=== PATIENT | female | born 1980 | race Caucasian/White ===

== ENCOUNTER 2017-12-05 07:52 | Emergency (ER) | payer OTHER ==
[2017-12-05 07:54] VITALS: BMI 26.6
[2017-12-05 07:57] VITALS: BP 126/92; PULSE 79; RESP 16; TEMP 97.8; O2SAT 98
--- NOTE | 2017-12-05 09:11 | ED PDOC ---
HPI: General Adult Time Seen by Provider: 12/05/17 08:43 Chief Complaint (Nursing): ENT Problem Chief Complaint (Provider): ENT Problem History Per: Patient History/Exam Limitations: no limitations Onset/Duration Of Symptoms: Hrs (x1) Current Symptoms Are (Timing): Still Present Additional Complaint(s): 37 year old female who presents to the emergency department with a complaint of foreign body in right ear ongoing since this morning. Denied any ear pain, discharge or further medical complaints. PMD: Corrine Hidalgo MD Past Medical History Reviewed: Historical Data, Nursing Documentation, Vital Signs Vital Signs: Last Vital Signs Temp 97.8 F 12/05/17 07:54 Pulse 79 12/05/17 07:54 Resp 16 12/05/17 07:54 BP 126/92 H 12/05/17 07:54 Pulse Ox 98 12/05/17 09:20 - Medical History PMH: Arthritis Denies: CHF, COPD, HIV, HTN, Hypercholesterolemia, Hypothyroidism, Chronic Kidney Disease, Rheumatoid Arthritis - Surgical History Surgical History: Denies: No Surg Hx Other surgeries: thoracic spinal fusion - Family History Family History: States: Unknown Family Hx - Social History Current smoker - smoking cessation education provided: No Alcohol: None Drugs: Denies - Home Medications Home Medications: Ambulatory Orders Medication Instructions Recorded Acetaminophen [Tylenol 325mg tab] 325 mg PO Q6 PRN 02/05/16 Docusate [Colace] 100 mg PO BID 02/05/16 Ferrous Sulfate [Feosol] 325 mg PO BID 02/05/16 Ondansetron [Zofran Tab] 4 mg PO Q6 PRN 02/05/16 Oxycodone HCl/Acetaminophen 1 each PO Q4 PRN 02/05/16 [Percocet 5-325 mg Tablet] Enoxaparin [Lovenox] 30 mg SC Q12 #0 syr 02/15/16 Lactobacillus Acidophilus [Bacid 1 cap PO BID #0 cap 02/15/16 Acidophilus] - Allergies Allergies/Adverse Reactions: Allergies Allergy/AdvReac Type Severity Reaction Status Date / Time No Known Allergies Allergy Verified 02/05/16 20:14 Review of Systems ROS Statement: Except As Marked, All Systems Reviewed And Found Negative ENT: Positive for: Other (foreign boday in right ear). Negative for: Ear Pain ( right-sided), Ear Discharge (right-sided) Physical Exam - Reviewed Nursing Documentation Reviewed: Yes Vital Signs Reviewed: Yes - Physical Exam Appears: Positive for: Well, Non-toxic, No Acute Distress Head Exam: Positive for: ATRAUMATIC, NORMAL INSPECTION, NORMOCEPHALIC ENT: Positive for: TM Is/Are (intact bilaterally), Other (cotton noted in right ear canal). Negative for: Normal ENT Inspection Neurologic/Psych: Positive for: Alert (x3), Oriented - ECG O2 Sat by Pulse Oximetry: 98 (RA) Pulse Ox Interpretation: Normal Medical Decision Making Medical Decision Making: Initial Impression: Foreign body in right ear Initial Plan: * Removal of foreign body (see procedure note) Time: 904 --Upon provider reevaluation, patient is feeling better, medically stable and requires no further treatment in the ED at this time. Patient will be discharged home. Counseling was provided and all questions were answered regarding diagnosis. There is agreement to discharge plan. Return if symptoms persist or worsen. Clinical Impression: Foreign body in right auditory canal Scribe Attestation: Documented by Maria Eugenia Menendez, acting as a scribe for Gabe Lucero MD. Provider Scribe Attestation: All medical record entries made by the Scribe were at my direction and personally dictated by me. I have reviewed the chart and agree that the record accurately reflects my personal performance of the history, physical exam, medical decision making, and the department course for this patient. I have also personally directed, reviewed, and agree with the discharge instructions and disposition. Procedures - Time-Out Type of Procedure: foreign body removal Site of Procedure: right ear Correct Patient (with visual ID + MR# on ID Band): Yes Correct Procedure: Yes Correct Site Marked: Yes X-Ray Marked: No Medication Reconciliation / Bloodwork / Allergies Checked: Yes Physician Name: mary jo - Additional Procedures Progress: Time: 0900 Right ear foreign body removal --Cotton noted in right ear canal with otoscope --Foreign body removed with alligator forceps --Patient tolerated procedure well --Right TM intact Disposition - Clinical Impression Clinical Impression: Foreign body in right auditory canal - Patient ED Disposition Is Patient to be Admitted: No Doctor Will See Patient In The: Office Counseled Patient/Family Regarding: Diagnosis - Disposition Referrals: [facility] [Outside] (as needed) Disposition: Routine/Home Disposition Time: 09:05 Condition: GOOD Instructions: Ear Foreign Body (ED) Forms: [employer] (Armenian)
== END 2017-12-05 09:15 | disposition home or self-care (01) ==
LOC: H.ER 07:52
DX: T16.1XXA Foreign body in right ear, initial encounter (principal); Y92.89 Other specified places as the place of occurrence of the external cause

== ENCOUNTER 2018-12-12 12:59 | Emergency (ER) | payer OTHER ==
[2018-12-12 13:00] VITALS: BMI 26.6
[2018-12-12 13:36] VITALS: O2SAT 100
--- NOTE | 2018-12-12 14:14 | ED PDOC ---
HPI: General Adult Time Seen by Provider: 12/12/18 14:09 Chief Complaint (Nursing): Abnormal Skin Integrity Chief Complaint (Provider): Abnormal Skin Integrity History Per: Patient History/Exam Limitations: no limitations Onset/Duration Of Symptoms: Days (x3) Current Symptoms Are (Timing): Still Present Additional Complaint(s): Maximo Copeland is a 38 year old female with a past medical history of arthritis who is presenting to the ED for evaluation of a groin abscess associated with pain onset about 3 days ago. 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 She denies any fevers and offers no other medical complaints at this time. PMD: Corrine Hidalgo Past Medical History Reviewed: Historical Data, Nursing Documentation, Vital Signs Vital Signs: Last Vital Signs Temp 98.1 F 12/12/18 13:36 Pulse 102 H 12/12/18 13:36 Resp 18 12/12/18 13:36 BP 149/98 H 12/12/18 13:36 Pulse Ox 100 12/12/18 13:36 - Medical History PMH: Arthritis Denies: CHF, COPD, HIV, HTN, Hypercholesterolemia, Hypothyroidism, Chronic Kidney Disease, Rheumatoid Arthritis - Surgical History Other surgeries: joint replacement - Family History Family History: States: Unknown Family Hx - Social History Current smoker - smoking cessation education provided: No Alcohol: None Drugs: Denies - Home Medications Home Medications: Ambulatory Orders Medication Instructions Recorded Acetaminophen [Tylenol 325mg tab] 325 mg PO Q6 PRN 02/05/16 Docusate [Colace] 100 mg PO BID 02/05/16 Ferrous Sulfate [Feosol] 325 mg PO BID 02/05/16 Ondansetron [Zofran Tab] 4 mg PO Q6 PRN 02/05/16 Oxycodone HCl/Acetaminophen 1 each PO Q4 PRN 02/05/16 [Percocet 5-325 mg Tablet] Enoxaparin [Lovenox] 30 mg SC Q12 #0 syr 02/15/16 Lactobacillus Acidophilus [Bacid 1 cap PO BID #0 cap 02/15/16 Acidophilus] Cephalexin [cephalexin] 500 mg PO QID #40 cap 12/12/18 Sulfamethoxazole/Trimethoprim 1 tab PO BID #20 tab 12/12/18 [Bactrim DS 800 mg-160 mg] - Allergies Allergies/Adverse Reactions: Allergies Allergy/AdvReac Type Severity Reaction Status Date / Time No Known Allergies Allergy Verified 12/12/18 13:35 Review of Systems ROS Statement: Except As Marked, All Systems Reviewed And Found Negative Constitutional: Negative for: Fever Genitourinary Female: Positive for: Other (groin pain and abscess) Physical Exam - Reviewed Nursing Documentation Reviewed: Yes Vital Signs Reviewed: Yes - Physical Exam Appears: Positive for: Well, Non-toxic, No Acute Distress Head Exam: Positive for: ATRAUMATIC, NORMAL INSPECTION, NORMOCEPHALIC Skin: Positive for: Normal Color, Warm Eye Exam: Positive for: Normal appearance Cardiovascular/Chest: Positive for: Regular Rate, Rhythm. Negative for: Murmur Respiratory: Positive for: Normal Breath Sounds. Negative for: Respiratory Distress Extremity: Positive for: Normal ROM, Other (crease of left hip: small indurated section with a fluctuant abscess, self draining with no red streaking or area of cellulitis). Negative for: Deformity Neurologic/Psych: Positive for: Alert, Oriented. Negative for: Motor/Sensory Deficits - ECG O2 Sat by Pulse Oximetry: 100 (RA) Pulse Ox Interpretation: Normal Medical Decision Making Medical Decision Making: Time: 14:44 Plan: --ED Urine Pegnancy --Urinalysis --Wound Culture Scribe Attestation: Documented by, Nadeen Stockton acting as a scribe for Mathew Borden PA-C. Provider Scribe Attestation: All medical record entries made by the Scribe were at my direction and personally dictated by me. I have reviewed the chart and agree that the record accurately reflects my personal performance of the history, physical exam, medical decision making, and the department course for this patient. I have also personally directed, reviewed, and agree with the discharge instructions and disposition. Procedures - Time-Out Type of Procedure: I&D Abscess Site of Procedure: left Inguinal Correct Patient (with visual ID + MR# on ID Band): Yes Correct Procedure: Yes Correct Site Marked: Yes PA/Tech: Mathew Borden PAC - Incision and Drainage Blade Size: 16 I & D Procedure: sterile drapes applied, sterile dressing applied, gauze wick placed Progress: Pt anestisized with 5cc of lidocaine 1% without epinephrine; the site was della tonja and a #16 blade was used to strike a 2mm region of this fluctuant abscess; the wound began to drain immediately; a wound culture was taken; sterile packing measuring 3cm was placed in the wound which was covered with tegaderm for protetcion/ The patient tolerated the procedure well and an abx will be providedd Disposition - Clinical Impression Clinical Impression: Abscess of groin, left - Patient ED Disposition Is Patient to be Admitted: No Doctor Will See Patient In The: Office - Disposition Referrals: Corrine Hidalgo MD [Medical Doctor] - Disposition: Routine/Home Disposition Time: 15:46 Condition: STABLE Additional Instructions: Take all antibiotics Follow up with PMD in 4-5 adays to remove packing and further evaluation if fever develops or red streaking, return to the ED Prescriptions: Cephalexin [cephalexin] 500 mg PO QID #40 cap Sulfamethoxazole/Trimethoprim [Bactrim DS 800 mg-160 mg] 1 tab PO BID #20 tab Instructions: Abscess Incision and Drainage, Abscess Incision and Drainage (DC), Skin Abscess Forms: [employer] ([place] Citizen)
[2018-12-12 15:05] LABS: SQUAMOUS EPITHIAL 17 /hpf (0-5); URINE BACTERIA RARE (<OCC); URINE BILIRUBIN NEGATIVE (NEGATIVE); URINE BLOOD NEGATIVE (NEGATIVE); URINE CLARITY CLOUDY (Clear); URINE COLOR YELLOW (YELLOW); URINE GLUCOSE (UA) NEG (NEGATIVE); URINE LEUKOCYTE ESTERASE TRACE Leu/uL (Negative); URINE PROTEIN 100 mg/dL (NEGATIVE); URINE UROBILINOGEN 0.2-1.0 mg/dL (0.2-1.0)
[2018-12-12] MEDS ORDERED: Lidocaine 1% Inj (20ml) ONE (15:14)
[2018-12-12 16:26] VITALS: BP 134/84; PULSE 88; RESP 16; TEMP 98.2
== END 2018-12-12 16:25 | disposition home or self-care (01) ==
LOC: H.ER 12:59
DX: L02.214 Cutaneous abscess of groin (principal); M19.90 Unspecified osteoarthritis, unspecified site

== ENCOUNTER 2018-12-20 17:03 | Emergency (ER) | payer OTHER ==
[2018-12-20 17:03] VITALS: BMI 26.6
[2018-12-20 17:26] VITALS: O2SAT 99
--- NOTE | 2018-12-20 18:04 | ED PDOC ---
HPI: Influenza Time Seen by Provider: 12/20/18 17:31 Chief Complaint: Fever History Per: Patient Sick Contacts (Context): Individual(s) At Work Additional complaint(s):: Pt. states this afternoon she had abrupt onset of frontal headache, weakness, bodyaches, and fever. States she took her temperature at 1630 and it was 100.8 orally. She took Tylenol right after. Headache resolved shortly after taking Tylenol but bodyaches and weakness persist. Also reports having nausea x 1 week since taking Keflex and Bactrim DS for an abscess on her L groin. Abscess has improved drastically and she no longer has pain to the L groin. Denies cough, congestion, sore throat, light sensitivity, headache, neck pain or stiffness, rash, abdominal pain, vomiting, diarrhea, head injury. Influenza vaccine is UTD, chest pain. Past Medical History Reviewed: Historical Data, Nursing Documentation, Vital Signs Vital Signs: Last Vital Signs Temp 99.3 F 12/20/18 17:23 Pulse 96 H 12/20/18 17:23 Resp 18 12/20/18 17:23 BP 131/90 12/20/18 17:23 Pulse Ox 99 12/20/18 17:23 - Medical History PMH: Arthritis Denies: CHF, COPD, HIV, HTN, Hypercholesterolemia, Hypothyroidism, Chronic Kidney Disease, Rheumatoid Arthritis - Surgical History Other surgeries: L hip surgery - Family History Family History: States: No Known Family Hx - Home Medications Home Medications: Ambulatory Orders Medication Instructions Recorded Acetaminophen [Tylenol 325mg tab] 325 mg PO Q6 PRN 02/05/16 Docusate [Colace] 100 mg PO BID 02/05/16 Ferrous Sulfate [Feosol] 325 mg PO BID 02/05/16 Ondansetron [Zofran Tab] 4 mg PO Q6 PRN 02/05/16 Oxycodone HCl/Acetaminophen 1 each PO Q4 PRN 02/05/16 [Percocet 5-325 mg Tablet] Enoxaparin [Lovenox] 30 mg SC Q12 #0 syr 02/15/16 Lactobacillus Acidophilus [Bacid 1 cap PO BID #0 cap 02/15/16 Acidophilus] Cephalexin [cephalexin] 500 mg PO QID #40 cap 12/12/18 Sulfamethoxazole/Trimethoprim 1 tab PO BID #20 tab 12/12/18 [Bactrim DS 800 mg-160 mg] Ciprofloxacin [Cipro] 500 mg PO BID #14 tab 12/20/18 Ondansetron ODT [Zofran ODT] 4 mg PO TID #10 odt 12/20/18 Oseltamivir Cap [Tamiflu] 75 mg PO BID #9 cap 12/20/18 - Allergies Allergies/Adverse Reactions: Allergies Allergy/AdvReac Type Severity Reaction Status Date / Time No Known Allergies Allergy Verified 12/12/18 13:35 Review of Systems ROS Statement: Except As Marked, All Systems Reviewed And Found Negative Constitutional: Positive for: Fever, Chills, Weakness, Malaise Neurological: Positive for: Headache Physical Exam - Physical Exam Appears: Positive for: Well, Non-toxic, No Acute Distress Skin: Positive for: Normal Color, Warm. Negative for: Rash Eye Exam: Positive for: Normal appearance ENT: Positive for: TM Is/Are (non-erythematous, non-bulging b/l), Pharyngeal Erythema. Negative for: Nasal Congestion, Tonsillar Exudate, Tonsillar Swelling Neck: Positive for: Normal, Painless ROM, Supple Cardiovascular/Chest: Positive for: Regular Rate, Rhythm Respiratory: Positive for: Normal Breath Sounds. Negative for: Respiratory Distress Gastrointestinal/Abdominal: Positive for: Normal Exam, Soft. Negative for: Tenderness Back: Negative for: L CVA Tenderness, R CVA Tenderness Extremity: Positive for: Other (L groin area with small incised wound without swelling, discharge, erythema, bleeding) Neurologic/Psych: Positive for: Alert, Oriented (x3) - Laboratory Results Result Diagrams: 12/20/18 19:00 12/20/18 19:00 Urine POC: Negative - ECG ECG Rhythm: Positive for: ST/T Changes Rate: 79 O2 Sat by Pulse Oximetry: 99 - Progress ED Course And Treament: Rapid strep, rapid flu, UA ordered. 1911 Udip demonstrated large leuks and negative nitrates and blood. Denies dysuria, hematuria, back pain, flank pain, urinary frequency. Labs, UA ordered. 1950 Pt. informed of results. Agrees with plan and care. States she has a 10 day course of both Keflex and Bactrim DS. Tomorrow is her 7th day. Informed that she will be treated for influenza and UTI. Advised to stop taking Keflex and Bactrim. Tamiflu PO, IV NS bolus x 1, rocephin 1gm IV ordered. Advised to f/u with Dr. Hidalgo for further evaluation but is to return to ED immediately if symptoms worsen. Pt. verbalized correct understanding of necessary f/up and care. Disposition - Clinical Impression Clinical Impression: Influenza-like illness, UTI (urinary tract infection), Fever in adult - Patient ED Disposition Is Patient to be Admitted: No - Disposition Referrals: [facility] [Outside] Corrine Hidalgo MD [Family Provider] - Disposition: Routine/Home Disposition Time: 19:01 Condition: IMPROVED Additional Instructions: FOLLOW UP WITH YOUR DOCTOR FOR FURTHER EVALUATION RETURN TO ED IMMEDIATELY IF SYMPTOMS WORSEN NEO BYRNE, thank you for letting us take care of you today. Your provider was Nitza Max MD and you were treated for FEVER. The [facility] medical care you received today was directed at your acute symptoms. If you were prescribed any medication, please fill it and take as directed. It may take several days for your symptoms to resolve. Return to the Emergency Department if your symptoms worsen, do not improve, or if you have any other problems. Please contact your doctor or call one of the physicians/clinics you have been referred to that are listed on the Patient Visit Information form that is included in your discharge packet. Bring any paperwork you were given at discharge with you along with any medications you are taking to your follow up visit. Our treatment cannot replace ongoing medical care by a primary care pro vider outside of the emergency department. Thank you for allowing the [facility] team to be part of your care today. If you had an X-Ray or CT scan: A Radiologist will review the ED reading if any change in treatment is needed we will contact you. If you had a blood, urine, or wound culture: It will take several days for the results, if any change in treatment is needed we will contact you. If you had an STI test: It will take 48 hours for the results. Please call after 1 week if you have not heard back. Prescriptions: Ciprofloxacin [Cipro] 500 mg PO BID #14 tab Ondansetron ODT [Zofran ODT] 4 mg PO TID #10 odt Oseltamivir Cap [Tamiflu] 75 mg PO BID #9 cap Instructions: Flu, Adult (DC), Urinary Tract Infection, Adult (DC), Fever, Adult (DC) Forms: [employer] (Danish), [facility] ED School/Work Excuse
[2018-12-20 19:19] LABS: BASO % 0.4 % (0.0-2.0); EOS % 1.3 % (0.0-4.0); HEMOGLOBIN 13.9 g/dL (12.0-16.0); LYMPH # 0.5 K/uL (1.0-4.3); LYMPH % 16.2 % (20.0-40.0); MEAN CELL VOLUME 85.9 fl (81.0-99.0); MEAN CORPUSCULAR HEMOGLOBIN 27.9 pg (27.0-31.0); MEAN CORPUSCULAR HGB CONC 32.4 g/dL (33.0-37.0); MEAN PLATELET VOLUME 7.8 fl (7.2-11.7); MONO # 0.6 K/uL (0.0-0.8); MONO % 17.5 % (0.0-10.0); NEUT # 2.1 K/uL (1.8-7.0); NEUT % 64.6 % (50.0-75.0); NRBC % 0.2 % (0.0-0.0); RBC 4.99 Mil/uL (3.80-5.20); RED CELL DISTRIBUTION WIDTH 13.8 % (11.5-14.5); WHITE BLOOD COUNT 3.3 K/uL (4.8-10.8)
[2018-12-20 19:24] LABS: SQUAMOUS EPITHIAL 11 /hpf (0-5); URINE BACTERIA RARE (<OCC); URINE BILIRUBIN NEGATIVE (NEGATIVE); URINE BLOOD NEGATIVE (NEGATIVE); URINE CLARITY CLOUDY (Clear); URINE COLOR YELLOW (YELLOW); URINE GLUCOSE (UA) NEG (NEGATIVE); URINE LEUKOCYTE ESTERASE LARGE Leu/uL (Negative); URINE PROTEIN 30 mg/dL (NEGATIVE); URINE UROBILINOGEN 0.2-1.0 mg/dL (0.2-1.0)
[2018-12-20 19:34] LABS: ALBUMIN 4.3 g/dL (3.5-5.0); ALT/SGPT 55 U/L (9-52); AST/SGOT 88 U/L (14-36); BLOOD UREA NITROGEN 11 mg/dl (7-17); CALCIUM 8.5 mg/dL (8.4-10.2); GFR NON-AFRICAN AMERICAN > 60
[2018-12-20] MEDS ORDERED: Sodium Chloride 0.9% 800 ML IV STA (19:52)
[2018-12-21 02:00] VITALS: BP 105/70; PULSE 78; RESP 16; TEMP 98.4
== END 2018-12-20 21:58 | disposition home or self-care (01) ==
LOC: H.ER 17:03
DX: J11.1 Influenza due to unidentified influenza virus with other respiratory manifestations (principal); N39.0 Urinary tract infection, site not specified; R50.9 Fever, unspecified
CPT/HCPCS: 80053; 81003; 81025; 85025; 87040; 87070; 87086; 87430; 87804; 96361; 96365; 99284; J0696; J7030